=== PATIENT | female | born 1945 | race Caucasian/White ===

== ENCOUNTER → 2017-02-25 | Outpatient (CLI) | payer MEDICARE | LOC: CLAB 08:01 | PROVIDERS: ATTEND Family Medicine | DX: I25.10 Atherosclerotic heart disease of native coronary artery without angina pectoris (principal) | CPT/HCPCS: 36415; 80061 ==

== ENCOUNTER → 2017-08-25 | Outpatient (CLI) | payer MEDICARE ==
[2017-08-25 09:58] LABS: ALT (GPT) 23 U/L (10-53)
[2017-08-25 10:05] LABS: ANION GAP 8 MEQ/L (5-15); AST (GOT) 25 U/L (15-37); BICARBONATE 26.5 MEQ/L (21.0-32.0); BLOOD UREA NITROGEN 17 MG/DL (7-18); CHLORIDE 105 MEQ/L (98-107); GLOMERULAR FILTRATION RATE 61 ML/MIN (>89); GLUCOSE,FASTING 98 MG/DL (74-99); SODIUM (NA) 139 MEQ/L (136-145)
[2017-08-25 10:06] LABS: ALKALINE PHOSPHATASE 96 U/L (45-117); FREE T4 1.02 NG/DL (0.76-1.46); HDL CHOLESTEROL 47.3 MG/DL (40.0-60.0); LDL CHOLESTEROL 152 MG/DL (0-99); TOTAL BILIRUBIN ADULT 0.6 MG/DL (0.2-1.0)
[2017-08-25 10:08] LABS: POTASSIUM 4.7 MEQ/L (3.5-5.1)
== END ==
LOC: CLAB 08:57
PROVIDERS: ATTEND Family Medicine
DX: E03.9 Hypothyroidism, unspecified (principal); E78.5 Hyperlipidemia, unspecified
CPT/HCPCS: 36415; 80053; 80061; 84439; 84443

== ENCOUNTER → 2018-03-01 | Outpatient (CLI) | payer MEDICARE ==
[2018-03-01 08:38] LABS: AUTOMATED NEUTROPHIL # 3.2 TH/MM3 (1.8-7.7); BASOPHIL # 0.1 TH/MM3 (0-0.2); EOSINOPHIL # 0.2 TH/MM3 (0-0.4); HEMOGLOBIN 13.5 GM/DL (11.6-15.3); LYMPH % 28.5 % (9.0-44.0); LYMPHOCYTE # 1.6 TH/MM3 (1.0-4.8); MEAN CELL VOLUME 90.5 FL (80.0-100.0); MEAN CORPUSCULAR HEMOGLOBIN 30.5 PG (27.0-34.0); MEAN CORPUSCULAR HGB CONC 33.7 % (32.0-36.0); MONO % 9.3 % (0.0-8.0); MONOCYTE # 0.5 TH/MM3 (0-0.9); NEUT % 57.2 % (16.0-70.0); PLATELET COUNT 201 TH/MM3 (150-450); RED BLOOD COUNT 4.42 MIL/MM3 (4.00-5.30); RED CELL DISTRIBUTION WIDTH 13.3 % (11.6-17.2); WHITE BLOOD COUNT 5.6 TH/MM3 (4.0-11.0)
[2018-03-01 09:07] LABS: ALBUMIN 3.4 GM/DL (3.4-5.0); AST (GOT) 13 U/L (15-37); BICARBONATE 27.7 MEQ/L (21.0-32.0); BLOOD UREA NITROGEN 14 MG/DL (7-18); CALCIUM 8.5 MG/DL (8.5-10.1); CHLORIDE 110 MEQ/L (98-107); GLOMERULAR FILTRATION RATE 70 ML/MIN (>89); GLUCOSE,FASTING 115 MG/DL (74-99); SODIUM (NA) 143 MEQ/L (136-145)
[2018-03-01 09:08] LABS: ALT (GPT) 19 U/L (10-53); CHOLESTEROL 234 MG/DL (120-200); TRIGLYCERIDES 91 MG/DL (42-150)
[2018-03-01 09:16] LABS: ALKALINE PHOSPHATASE 93 U/L (45-117); CHOLESTEROL/ HDL RATIO 4.67 RATIO; HDL CHOLESTEROL 50.1 MG/DL (40.0-60.0); LDL CHOLESTEROL 166 MG/DL (0-99); TOTAL BILIRUBIN ADULT 0.4 MG/DL (0.2-1.0); TOTAL PROTEIN 6.8 GM/DL (6.4-8.2)
== END ==
LOC: CLAB 07:54
PROVIDERS: ATTEND Family Medicine
DX: I25.10 Atherosclerotic heart disease of native coronary artery without angina pectoris (principal); E03.9 Hypothyroidism, unspecified; E78.5 Hyperlipidemia, unspecified
CPT/HCPCS: 36415; 80053; 80061; 84439; 84443; 85025

== ENCOUNTER 2018-05-11 20:55 | Emergency (ER) | payer MEDICARE ==
[2018-05-11 20:57] VITALS: BP 131/65; PULSE 76; RESP 20; TEMP 97.6
[2018-05-11] MEDS ORDERED: PLAV75TA29 PO (21:09)
[2018-05-11] MEDS ORDERED: LEVO.075 PO (21:09)
[2018-05-11] MEDS ORDERED: CEPHALEXIN MONOHYDRATE 500 MG CAP PO ONE (21:30)
--- NOTE | 2018-05-11 21:32 | PD ---
HPI Chief Complaint: Skin Problem Time Seen by Provider: 21:23 Travel History International Travel<30 days: Yes Contact w/Intl Traveler<30days: Yes Name of Country Traveled to: [place] Traveled to known affect area: No History of Present Illness HPI 72-year-old female presents to the emergency department complaint of discomfort associated with large blister to the dorsal aspect of the left great toe. Patient recently returned from [facility] where she did extensive walking and walking shoes and overtime noticed increasing size of large blister to the dorsal aspect of the left great toe no fever no chills no nausea no vomiting has noted a small area of erythema at the base of the edge of one area of the blister. Does not note any pus inside of the blister. Patient rates discomfort at 7-2/10; worsened by wearing shoes and ambulation less than by elevation and keeping it from enclosed shoes. Patient denies other concerns or complaints. Symptoms been noted over the past few days. Patient is not diabetic. Patient states tetanus shot may be within the past 10 years. Patient does take Plavix due to history of cardiac disease but has had no increased bleeding. PFSH Past Medical History Narrative Medical CAD MA coronary stent hypothyroidism bunionectomy; occasional alcohol use; nursing notes reviewed Hx Anticoagulant Therapy: Yes (PLAVIX) Coronary Artery Disease: Yes Diminished Hearing: No Immunizations Current: Yes Myocardial Infarction: Yes Thyroid Disease: Yes Tetanus Vaccination: > 5 Years Influenza Vaccination: No ?: Not Menopausal: Yes Past Surgical History Coronary Stent: Yes Social History Alcohol Use: Yes (OCC WINE) Tobacco Use: No Substance Use: No Allergies-Medications (Allergen,Severity, Reaction): Coded Allergies: No Known Allergies (Verified Allergy, Unknown, 05/11/18) Reported Meds & Prescriptions Reported Meds & Active Scripts Active Reported Synthroid (Levothyroxine Sodium) 75 Mcg Tab 75 Mcg PO DAILY Plavix (Clopidogrel Bisulfate) 75 Mg Tab 75 Mg PO QOD Review of Systems Except as stated in HPI: all other systems reviewed are Neg Physical Exam Narrative GENERAL: Well-developed well-nourished female no acute distress no respiratory distress SKIN: Warm and dry. Focused exam attention left great toe dorsal aspect intact large blister 2 cm x 2 cm with corner edge at dorsum of toe with erythema minimal tenderness fluid appears clear non-cloudy no blood. MUSCULOSKELETAL: No cyanosis, or edema. No deformity. Neurovascular tendon intact. Brisk capillary refill. Scar to dorsum of foot consistent with remote bunionectomy. Data Data Last Documented VS Vital Signs Date Time Temp Pulse Resp B/P (MAP) Pulse Ox O2 Delivery O2 Flow Rate FiO2 05/11/18 20:57 97.6 76 20 131/65 (87) Orders Orders Wound Culture And Gram Stain (05/11/18 21:23) Cephalexin (Keflex) (05/11/18 21:30) Wound Care (05/11/18 21:23) Ed Discharge Order (05/11/18 21:23) [facility] Medical Decision Making Medical Screen Exam Complete: Yes Emergency Medical Condition: Yes Medical Record Reviewed: Yes Differential Diagnosis blister, pustule, cellultis Narrative Course Large blister to the dorsal aspect of the left great toe interfering with patient's ability to wear shoes/foot well comfortably and has a corner/edge with erythematous base otherwise area about the bullous lesion shows no induration erythema and no point tenderness; after informed verbal consent left great toe was sterilely prepped and draped and Betadine was applied to the area in preparation for aspiration of fluid which appears clear yellow aspirated with 27-gauge needle and 3 cc syringe; specimen collected and sent for resulting. In view of area of erythema will start patient on Keflex for focal area of cellulitis. 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 Diagnosis Primary Impression: Blister of great toe of left foot Qualified Codes: S90.422A - Blister (nonthermal), left great toe, initial encounter Referrals: Primary Care Physician 2 days Patient Instructions: General Instructions Additional Instructions: Keep site clean and dry; apply Polysporin dressing daily Complete course of antibiotic Follow with primary care provider Take acetaminophen/Tylenol as needed for fever 100.4F or greater or for minor pain Return to the emergency department for concerns or change in condition Recommend open toed footwear Med/Other Pt SpecificInfo: Prescription(s) given Scripts Cephalexin (Keflex) 500 Mg Cap 500 MG PO Q12H for Infection for 7 Days, #14 CAP 0 Refills Prov: Chanelle Marley MD 05/11/18 Disposition: 01 DISCHARGE HOME Condition: Stable Chanelle Marley MD May 11, 2018 21:32
[2018-05-11] MEDS ORDERED: CEPH-460 PO (21:36)
== END 2018-05-11 21:37 | disposition home or self-care (01) ==
LOC: PHEFT 20:55
DX: S90.422A Blister (nonthermal), left great toe, initial encounter (principal); E03.9 Hypothyroidism, unspecified; I25.10 Atherosclerotic heart disease of native coronary artery without angina pectoris; X58.XXXA Exposure to other specified factors, initial encounter; Y93.01 Activity, walking, marching and hiking; Z79.02 Long term (current) use of antithrombotics/antiplatelets
CPT/HCPCS: 87070; 87205; 99283